=== PATIENT | male | born 1995 | race Caucasian/White ===

== ENCOUNTER 2019-10-31 20:23 | Emergency (ER) | payer MEDICAID ==
[~2019-10-31] VITALS: Ht 172.7 cm; Wt 65.8 kg
[2019-10-31 20:27] VITALS: BP 109/64
[2019-10-31] MEDS ORDERED: AMOXICILLIN500 MG ORAL (21:08)
[2019-10-31] MEDS ORDERED: IBUPROFEN600 MG ORAL (21:08)
[2019-10-31 21:17] VITALS: BP 115/70
--- NOTE | 2019-10-31 21:17 | NUR ---
ER DISCHARGE NOTE: Pt was seen due to sore throat. Patient is cleared to be discharged per ERMD, pt is aox4, on room air, with stable vital signs. pt was given dc and prescription instructions, pt was able to verbalize understanding, pt id band removed. pt is able to ambulate with steady gait. pt took all belongings.
--- NOTE | 2019-11-01 14:55 | Emergency Room Report ---
History of Present Illness General Chief Complaint: Sore Throat Source: Patient Present Illness HPI Patient is a 24-year-old male who presents after increased sore throat. He had reportedly had onset of symptoms 2 days ago. Had sick contacts at home. He denies any fever. He reports having similar symptoms in the past. He denies any vomiting or diarrhea. He denies any other locations of pain. Denies any cough. Allergies: Coded Allergies: No Known Allergies (Unverified , 10/31/19) Patient History Past Medical History: see triage record Reviewed Nursing Documentation: PMH: Agreed; PSxH: Agreed Nursing Documentation-PMH Past Medical History: No Stated History Review of Systems All Other Systems: negative except mentioned in HPI Physical Exam Vital Signs Date Time Temp Pulse Resp B/P (MAP) Pulse Ox O2 Delivery O2 Flow Rate FiO2 10/31/19 20:27 98.1 69 18 109/64 (79) 99 Room Air General Appearance: well appearing, no apparent distress, alert, GCS 15 Head: normocephalic, atraumatic ENT: hearing grossly normal, normal voice, tonsillar swelling, tonsillar exudate Neck: full range of motion, supple Respiratory: no respiratory distress, speaking full sentences Gastrointestinal: normal inspection, soft Musculoskeletal: normal inspection, gait/station normal, normal range of motion Neurologic: alert, motor strength/tone normal, normal gait Psychiatric: normal inspection, mood/affect normal Skin: no rash Medical Decision Making Diagnostic Impression: Primary Impression: Tonsillitis ER Course Patient presented for sore throat. Differential diagnosis included but was not limited to meningitis, exudative tonsillitis, retropharyngeal abscess, epiglottitis, strep pharyngitis. Patient has a benign exam and does not appear to require any imaging or laboratory testing at this time. Patient appears to have bacterial tonsillitis. Will be given prescription for oral antibiotics. He was also given prescription for ibuprofen. He is advised to follow-up with his primary care physician for recheck. He is advised to continue oral hydration and to return if worse. This medical record is generated with [employer] mainframe systems programmer software. There may be some mainframe systems programmer discrepancies related to use of this software Last Vital Signs Date Time Temp Pulse Resp B/P (MAP) Pulse Ox O2 Delivery O2 Flow Rate FiO2 10/31/19 21:17 98.3 74 16 115/70 100 Room Air Status: improved Disposition: HOME, SELF-CARE Condition: Stable Scripts Ibuprofen* (MOTRIN*) 600 Mg Tablet 600 MG ORAL Q8H PRN for For Pain, #30 TAB 0 Refills Prov: Orestes Velásquez MD 10/31/19 Amoxicillin* (AMOXIL*) 500 Mg Capsule 500 MG ORAL THREE TIMES A DAY, #21 CAP Prov: Orestes Velásquez MD 10/31/19 Referrals: [facility],REFERRING (PCP) Patient Instructions: Tonsillitis Orestes Velásquez MD Nov 01, 2019 14:55
== END 2019-10-31 21:17 | disposition home or self-care (01) ==
LOC: EMR 21:17
DX: J03.90 Acute tonsillitis, unspecified (principal)
CPT/HCPCS: 99282